=== PATIENT | male | born 1955 | race American Indian/Alaskan Native ===

== ENCOUNTER 2019-08-29 17:35 | Inpatient (IN) | payer OTHER ==
[~2019-08-29] VITALS: Ht 177.8 cm; Wt 79.5 kg
[2019-08-29 18:42] LABS: Source, Urine Clean Catch
[2019-08-29 18:50] LABS: Blood, Urine 2+ (Neg); Glucose Qualitative, Urine Neg (Neg); Ketones, Urine 1+ (Neg); Leukocyte Esterase, Urine 1+ (Neg); Nitrite, Urine Pos (Neg); Protein, Urine 3+ (Neg); Urobilinogen, Urine 4+ (Normal)
[2019-08-29 19:02] LABS: Appearance, Urine Hazy (Clear); Bilirubin, Urine 2+ (Neg); Color, Urine Amber (P-Yellow)
[2019-08-29 19:04] LABS: Amorphous Light (0-Heavy); Bacteria Many /hpf; Hyaline Casts 0-2 /lpf (0-2); Mucus Light (0-Heavy); Squamous Epithelial Cells Few /hpf (Few)
[2019-08-29 23:15] LABS: Hematocrit 37.1 % (37.0-53.0); Hemoglobin 12.5 g/dL (13.5-17.5); Mean Corpuscular HGB Conc 33.7 g/dL (31.5-36.5); Mean Corpuscular Volume 89 fL (80-100); Mean Platelet Volume 10.4 fL (9.1-12.4); Platelet Count 120 K/mm3 (150-400); RDW Coefficient Variation 12.7 % (11.7-14.2); RDW Standard Deviation 42.1 fL (35.1-46.3); Red Blood Cell Count 4.16 M/mm3 (4.30-5.90); White Blood Cell Count 6.58 K/mm3 (4.00-11.30)
[2019-08-29 23:31] LABS: Alanine Aminotransfer (ALT/SGP 112 U/L (12-78); Albumin, Blood 2.3 g/dL (3.4-5.0); Albumin/Globulin Ratio 0.8 (0.8-1.8); Alk Phos 201 U/L (50-136); Anion Gap 7 mmol/L (6-16); Aspartate Aminotrans (AST/SGOT 85 U/L (12-37); Blood Urea Nitrogen 24 mg/dL (8-24); Bun/Creatinine Ratio 11.2 (12.0-20.0); CO2, Blood 23 mmol/L (21-32); Calcium, Blood 7.4 mg/dL (8.5-10.1); Chloride, Blood 110 mmol/L (98-108); Creatinine, Blood 2.15 mg/dL (0.60-1.20); Glomerular Filtration Rate 33 (60-); Glucose, Blood 103 mg/dL (70-99); Potassium, Blood 3.6 mmol/L (3.5-5.5); Salicylate <1.7 mg/dL (2.8-20.0); Sodium, Blood 140 mmol/L (136-145); Total Protein, Blood 5.3 g/dL (6.4-8.2)
[2019-08-29 23:34] LABS: International Normalized Ratio 1.03; Prothrombin Time Results 10.9 Sec (9.7-11.5)
[2019-08-29 23:38] LABS: BAND PERCENT MAN 36 % (0-8); BASOPHILS ABSOLUTE MAN 0.13 K/mm3 (0.00-0.23); BASOPHILS PERCENT MAN 2 % (0-2); EOSINOPHILS PERCENT MAN 0 % (0-6); LYMPHOCYTES ABSOLUTE MAN 0.13 K/mm3 (0.84-5.20); LYMPHOCYTES PERCENT MAN 2 % (21-46); MONOCYTES ABSOLUTE MAN 0.19 K/mm3 (0.16-1.47); MONOCYTES PERCENT MAN 3 % (4-13); NEUTROPHILS ABSOLUTE MAN 6.11 K/mm3 (1.96-9.15); SEG NEUTROPHILS PERCENT MAN 57 % (41-73); TOTAL CELLS COUNTED 100
--- NOTE | 2019-08-30 02:27 | NUR ---
PT. STILL IN 03/30 GENERALIZED BACK/HEAD PAIN, DIFFICULTY SLEEPING, RECEIVED ORDER FROM DR. RANDHAWA X1 DOSE OF 25 MCG FENTANYL IVPUSH.
[2019-08-30 05:00] LABS: Hematocrit 36.4 % (37.0-53.0); Hemoglobin 12.3 g/dL (13.5-17.5); Mean Corpuscular HGB 30.1 pg (26.0-34.0); Mean Corpuscular HGB Conc 33.8 g/dL (31.5-36.5); Mean Corpuscular Volume 89 fL (80-100); Mean Platelet Volume 10.4 fL (9.1-12.4); Platelet Count 120 K/mm3 (150-400); RDW Coefficient Variation 12.9 % (11.7-14.2); RDW Standard Deviation 42.6 fL (35.1-46.3); Red Blood Cell Count 4.08 M/mm3 (4.30-5.90); White Blood Cell Count 6.92 K/mm3 (4.00-11.30)
[2019-08-30 05:30] LABS: Albumin, Blood 2.2 g/dL (3.4-5.0); Albumin/Globulin Ratio 0.7 (0.8-1.8); Bilirubin, Total 2.8 mg/dL (0.1-1.0); Bun/Creatinine Ratio 11.7 (12.0-20.0); Calcium, Blood 7.2 mg/dL (8.5-10.1); Creatinine, Blood 2.39 mg/dL (0.60-1.20); Globulin, Blood 3.1 g/dL (2.2-4.0); Potassium, Blood 3.9 mmol/L (3.5-5.5); Total Protein, Blood 5.3 g/dL (6.4-8.2)
--- NOTE | 2019-08-30 08:08 | NUR ---
PT NAUSEOUS THIS MORNING WHEN BREAKFAST ARRIVED AND VOMITTED ABOUT 50ML. ZOFRAN GIVEN, COOL CLOTH TO FOREHEAD AND NAUSEA SLOWLY IMPROVED. DR. SHERWOOD GAVE OK FOR REGULAR DIET, BUT ENCOURAGED PT TO START WITH TRYING TO KEEP SOME LIQUIDS DOWN AND PT VERBALIZES UNDERSTANDING. PT'S SPO2 WAS 98% ON 2L/NC. TITRATED OFF AND PT 92-94% RA. ALVARO AT BEDSIDE. CONTINUING TO MONITOR.
--- NOTE | 2019-08-30 11:58 | NUR ---
REASSESSMENT: PT HAS BEEN RESTING IN BED FOR MOST OF THE MORNING. HE HAS BEEN UP TO THE BATHROOM, C/O OF LIGHTHEADEDNESS IN AND OUT OF BED. ONGOING HEADACHE, REFUSED TYLENOL. WENT FOR CT WITH RN, TOLERATED WELL. NAUSEA IS IMPROVED, BUT STILL PRESENT. BP REMAINS STABLE OFF OF LEVOPHED.
--- NOTE | 2019-08-30 14:21 | NUR ---
Initial Visit: Palliative Care Consult for AD/POLST. Pt is resting in bed and is A&OX4. Family and friends at bedside. Engaged in discussion regarding AD/POLST. Pt confirms interest in Advance Directive. Educated Pt on AD, life sustaining measures including risk factors, and each section to complete. Read each scenario to consider with options to choose from. Pt reports that he would like to consider each scenario a little further before completing. Educated Pt on the importance of having a health care wire rope sales representative. Friend of family who is also present during visit reports being a notary and can assist once Pt is at home. Pt reports no other concerns at this time. Palliative Care will remain available.
--- NOTE | 2019-08-30 16:37 | NUR ---
PT HAS HAD AN ONGOING HEADACHE. TYLENOL GIVEN, WITH NO RELIEF. PT SAYS HIS BACK AND NECK ARE STARTING TO HURT WELL. DR. SHERWOOD NOTIFIED AND RECEIVED ORDER FOR FENTANYL, SEE ORDERS.
--- NOTE | 2019-08-30 17:25 | NUR ---
SHIFT SUMMARY: PT SPENT THE DAY RESTING IN BED. HE GOT UP TWICE TO THE BATHROOM AND GETS UP TO THE EOB TO VOID. HE HAS HAD AN ONGOING H/A THAT INITIALLY IMPROVED WITH THE NICOTINE PATCH, BUT GOT WORSE THIS EVENING. TYLENOL GIVEN WITH NO RELIEF, THEN FENTANYL GIVEN WITH A LITTLE RELIEF. PT'S FAMILY STATES PT DRINKS A LOT OF COFFEE USUALLY WELL SO HEADACHES MAY BE CAFFEINE RELATED WELL. PT SPIKED A FEVER THIS EVENING, BUT IT RESOLVED QUICKLY WITH THE TYLENOL THAT WAS GIVEN. PT'S NAUSEA IS STILL PRESENT, BUT MANAGEABLE. HE HAS BEEN ABLE TO KEEP SMALL SIPS OF FLUIDS DOWN. IV FLUIDS STILL GOING AND I/O ARE WITHIN 100ML OF EACH OTHER. LUNGS ARE CLEAR. HAD TO PLACE ON 2L/NC AFTER GIVING FENTANYL. SR, BP STABLE OFF OF THE LEVOPHED STILL. FAMILY HAS BEEN AT THE BEDSIDE THROUGHOUT THE DAY AND ALL HAVE BEEN UPDATED.
--- NOTE | 2019-08-30 20:39 | NUR ---
PATIENT RESTING IN BED VISITING WITH FAMILY WITH ROOM DARK. PATIENT CONTINUES TO C/O SANCHEZ AND SLIGHT NAUSEA. PATIENT ALSO C/O LOW BACK PAIN. MEDICATED WITH FENTANYL DURING THE DAY WITH SLIGHT RELIEF. PATIENT ABLE TO SIT ON SIDE OF BED WITH SLIGHT ASSIST TO USE URINAL PASSING DARK JOSHUA URINE. COOL CLOTH PLACED TO FOREHEAD FOR SANCHEZ WHEN BACK TO BED. LEVOPHED REMAINS OFF AT THIS TIME.
--- NOTE | 2019-08-30 22:28 | NUR ---
PATIENT VERBALIZED THAT HE HAS BEEN HAVING HALLUCINATIONS STARTING YESTERDAY. PATIENT VERBALIZED THAT WHEN HE CLOSES HIS EYES HE HAS BEEN SEEING DESCRIBED WATCHING A WESTERN MOVIE, ALSO WHEN HIS EYES ARE CLOSED HE SEES A BAG FULL OF TOYS ON THE COUNTER THAT ARE NOT THERE WHEN HE OPENS HIS EYES. HE REALIZES THAT THESE ARE NOT REAL AND SEEMS UNDISTURBED BY THEM.
[2019-08-31 03:47] LABS: BASOPHILS ABSOLUTE AUTO 0.02 K/mm3 (0.00-0.23); BASOPHILS PERCENT AUTO 0 % (0-2); EOSINOPHILS ABSOLUTE AUTO 0.04 K/mm3 (0.00-0.68); EOSINOPHILS PERCENT AUTO 1 % (0-6); Hematocrit 35.9 % (37.0-53.0); Hemoglobin 12.3 g/dL (13.5-17.5); IMMATURE GRAN ABSOLUTE AUTO 0.01 K/mm3 (0.00-0.10); IMMATURE GRAN PERCENT AUTO 0 % (0-1); LYMPHOCYTES PERCENT AUTO 7 % (21-46); MONOCYTES PERCENT AUTO 7 % (4-13); Mean Corpuscular HGB 30.1 pg (26.0-34.0); Mean Corpuscular HGB Conc 34.3 g/dL (31.5-36.5); Mean Corpuscular Volume 88 fL (80-100); Mean Platelet Volume 10.5 fL (9.1-12.4); NEUTROPHILS PERCENT AUTO 84 % (41-73); Platelet Count 129 K/mm3 (150-400); RDW Coefficient Variation 13.2 % (11.7-14.2); RDW Standard Deviation 42.8 fL (35.1-46.3); Red Blood Cell Count 4.08 M/mm3 (4.30-5.90); White Blood Cell Count 5.57 K/mm3 (4.00-11.30)
--- NOTE | 2019-08-31 03:59 | NUR ---
AT 0230 PATIENT AWAKE AND VERBALIZED THAT HIS SANCHEZ IS RETURNING AND HE WAS FEELING LIKE HIS TEMP MY BE GOING UP. TYLENOL AND ZOFRAN GIVEN, AND COOL CLOTH PLACED TO FOREHEAD. TEMP NOW UP TO 99.9 OXYGEN PLACED AT 2L/NC DUE TO BIOX 88-89% ON RA BIOX NOW 96% ON 2L/NC
[2019-08-31 04:04] LABS: Albumin/Globulin Ratio 0.7 (0.8-1.8); Bilirubin, Total 1.8 mg/dL (0.1-1.0); Bun/Creatinine Ratio 15.3 (12.0-20.0); Calcium, Blood 7.9 mg/dL (8.5-10.1); Creatinine, Blood 1.77 mg/dL (0.60-1.20); Magnesium, Blood 1.8 mg/dL (1.6-2.4); Phosphorus, Blood 2.4 mg/dL (2.5-4.9); Potassium, Blood 3.5 mmol/L (3.5-5.5)
--- NOTE | 2019-08-31 06:31 | NUR ---
PATIENT AWAKE MOST OF NIGHT. C/O SANCHEZ AND NAUSEA, PATIENT VERBALIZED HAVING HALLUCINATIONS WHEN HIS EYES ARE CLOSED MORE SO WHEN HIS SANCHEZ IS MORE SEVERE. MEDICATED WITH TYLENOL AND ZOFRAN. LEVOPHED REMAINS OFF. PATIENT ABLE TO SIT AT SIDE OF BED TO USE URINAL WITH MIN ASSIST DUE TO LINES AND CORDS. PATIENTS DAUGHTER AT BEDSIDE PROVIDING GOOD SUPPORT.
--- NOTE | 2019-08-31 09:37 | NUR ---
ASSUMED CARE NOTE: ASSUMED CARE OF PT @ 0700, RECEVIED REPORT FROM IKE RODAS. UPON ENTERING PT WAS ON 2L OF O2 VIA NC, WITH SPO2 ABOVE 90%. PT IS ALERT AND ORIENTEDX4. DAUGHTER @ BEDSIDE. PT C/O HEADACHE, AND VERTIGO, AND WAS MEDICATED PER EMAR. ORTHOSTATIC BP'S COMPLETED. PT USING URINAL AT BEDSIDE. PT'S STATUS CHANGED TO MEDICAL STATUS PER . WILL REMOVE CENTRAL LINE BEFORE TRANSFER. WILL CONTINUE TO MONITOR PT UNTIL REPORT IS GIVEN TO MED FLOOR NURSE.
--- NOTE | 2019-08-31 11:19 | NUR ---
TRANSFER NOTE: GAVE REPORT TO CESARIO RAMIRES. TRANSFERED PT TO ROOM IN BED ON RA. PT TRANSFERED FROM BED WITH 1/PERSON ASSISTANCE.
--- NOTE | 2019-08-31 11:41 | NUR ---
1106 PT TRANSFERED TO MEDICAL FLOOR FROM ICU. PT SELF TRANSFERED TO BED WITHOUT ISSUE. MRI FORM FILLED OUT WITH PT AND FAXED TO MRI. DAUGHTER AT BEDSIDE.
--- NOTE | 2019-08-31 13:35 | NUR ---
PT TO IMAGING FOR MRI [facility]IA [facility].
--- NOTE | 2019-08-31 16:17 | NUR ---
Spiritual Care inital note: Per admit trigger, I met with Mr. Gonzalez to offer information about Advanvced Directive. He informed me he already has one completed. No needs or concerns presented. He feels like he is going to be "ok." I will remain available.
--- NOTE | 2019-08-31 18:28 | NUR ---
SHIFT SUMMARY. PT MILDLY FEBRILE THIS AFTERNOON, PRN APAP GIVEN WITH GOOD EFFECT. PT REPORTED MILD NAUSEA WITHOUT VOMITTING, MANAGED WELL WITH PRN ZOFRAN. MRI COMPLETED TODAY, DR. SHERWOOD IN WITH PT AND DAUGHTER TO DISCUSS RESULTS. PT TO START NASAL SPRAY THIS EVENING FOR SINUS INFLAMATION PER DR. SHERWOOD. DAUGHTER AT BEDSIDE DURING MOST OF THE SHIFT SINCE TRANSFER, RECLINER PLACED IN ROOM PER DAUGHTER REQUEST TO STAY THE NIGHT WITH PT.
[2019-09-01 05:10] LABS: BASOPHILS ABSOLUTE AUTO 0.02 K/mm3 (0.00-0.23); BASOPHILS PERCENT AUTO 0 % (0-2); EOSINOPHILS ABSOLUTE AUTO 0.05 K/mm3 (0.00-0.68); EOSINOPHILS PERCENT AUTO 1 % (0-6); Hemoglobin 12.1 g/dL (13.5-17.5); IMMATURE GRAN ABSOLUTE AUTO 0.01 K/mm3 (0.00-0.10); IMMATURE GRAN PERCENT AUTO 0 % (0-1); LYMPHOCYTES ABSOLUTE AUTO 0.65 K/mm3 (0.84-5.20); LYMPHOCYTES PERCENT AUTO 15 % (21-46); MONOCYTES ABSOLUTE AUTO 0.42 K/mm3 (0.16-1.47); MONOCYTES PERCENT AUTO 9 % (4-13); Mean Corpuscular HGB 29.2 pg (26.0-34.0); Mean Corpuscular HGB Conc 33.6 g/dL (31.5-36.5); Mean Corpuscular Volume 87 fL (80-100); Mean Platelet Volume 10.8 fL (9.1-12.4); NEUTROPHILS PERCENT AUTO 74 % (41-73); Platelet Count 148 K/mm3 (150-400); RDW Coefficient Variation 13.4 % (11.7-14.2); RDW Standard Deviation 42.2 fL (35.1-46.3); Red Blood Cell Count 4.15 M/mm3 (4.30-5.90); White Blood Cell Count 4.45 K/mm3 (4.00-11.30)
--- NOTE | 2019-09-01 05:33 | NUR ---
SHIFT SUMMARY PT RECIEVED DEEP SEA NASAL SPRAY FOR THE FIRST TIME TONIGHT AND REPORTS HEADACHE AND VERTIGO HAS SIGNICANTLY IMPROVED SINCE. PT WITH LOW GRADE FEVER OF 100.0, BROUGHT DOWN TO 98.8 WITH COOL WASH CLOTH APPLICATION AND PO TYLENOL. TELE IN PLACE, NSR @ 72 BPM. WEENED OFF O2, BUT PT REAPPLIED T/O NIGHT FOR COMFORT, HOWEVER O2 SATS DID NOT DROP BELOW 95%. NO OTHER CHANGES TO REPORT. DAUGTHER AT BEDSIDE T/O NIGHT. WILL CONT TO MONITOR AND PROVID CARE UNTL PRESUMED BY ONCOMING RN.
[2019-09-01 05:37] LABS: Calcium, Blood 7.9 mg/dL (8.5-10.1); Creatinine, Blood 1.55 mg/dL (0.60-1.20); Potassium, Blood 3.4 mmol/L (3.5-5.5)
[2019-09-01] MEDS ORDERED: ACET325 PO (11:01)
[2019-09-01] MEDS ORDERED: Colace100 MG PO (11:03)
[2019-09-01] MEDS ORDERED: MOTION RELIEF25 MG PO (11:04)
[2019-09-01] MEDS ORDERED: Cefdinir300 MG PO (11:05)
[2019-09-01] MEDS ORDERED: DEEP SEA44 ML (11:07)
--- NOTE | 2019-09-01 12:19 | NUR ---
1155 PT DISCHARGED HOME VIA PERSONAL VEHICLE ACCOMPANIED AND DRIVEN BY DAUGHTER. PT ESCORTED TO ENTRANCE VIA W/C BY FIBERGLASS FINISHER. IVS REMOVED. D/C PAPERWORK REVIEWED WITH PT AND COPY PROVIDED, PT VERBALIZED UNDERSTANDING. IJ DRESSING REMOVED, NO HEMATOMA OR BLEEDING, SITE TO R NECK MOSTLY PINPOINT SCABBED. PO KCL GIVEN PRIOR TO D/C. NO NEW CHANGES OR CONCERNS.
== END 2019-09-01 11:55 | disposition home or self-care (01) | DRG 871 ==
LOC: ER 17:35 → ICUW 22:04 → MEDS 22:04 → ICUE 22:04 → MEDS 08-31 11:06
PROVIDERS: Emergency Medicine; Internal Medicine; Internal Medicine Critical Care Medicine; ADMIT Internal Medicine
PROC: 05HM33Z Insertion of Infusion Device into Right Internal Jugular Vein, Percutaneous Approach (ICD-10-PCS; principal; 2019-08-29)
PROC: B543ZZA Ultrasonography of Right Jugular Veins, Guidance (ICD-10-PCS; 2019-08-29)
DX: A41.9 Sepsis, unspecified organism (principal); R65.21 Severe sepsis with septic shock; N17.0 Acute kidney failure with tubular necrosis; K72.00 Acute and subacute hepatic failure without coma; N10 Acute pyelonephritis; J98.11 Atelectasis; E87.6 Hypokalemia; J32.9 Chronic sinusitis, unspecified; E83.39 Other disorders of phosphorus metabolism; I95.9 Hypotension, unspecified; D69.6 Thrombocytopenia, unspecified; Z87.891 Personal history of nicotine dependence
CPT/HCPCS: 36415; 36556; 70450; 70551; 74176; 76705; 80048; 80053; 81001; 83605; 83690; 83735; 84100; 85025; 85027; 85610; 85651; 86140; 87040; 87086; 93005; 93010; 96361; 96374; 99285-25; A9270; C1751; G0480; J0696; J2405; J3010; J7030; J7050; J7060; J7120

== ENCOUNTER → 2019-08-29 | Outpatient (CLI) | payer OTHER ==
[~2019-08-29] MED LIST: ACET325 PO; Cefdinir300 MG PO; Colace100 MG PO; DEEP SEA44 ML; MOTION RELIEF25 MG PO
[2019-08-29 15:31] LABS: Hematocrit 45.7 % (37.0-53.0); Hemoglobin 15.3 g/dL (13.5-17.5); Mean Corpuscular HGB 29.9 pg (26.0-34.0); Mean Corpuscular HGB Conc 33.5 g/dL (31.5-36.5); Mean Corpuscular Volume 89 fL (80-100); Mean Platelet Volume 10.3 fL (9.1-12.4); Platelet Count 147 K/mm3 (150-400); RDW Coefficient Variation 12.6 % (11.7-14.2); RDW Standard Deviation 41.9 fL (35.1-46.3); Red Blood Cell Count 5.11 M/mm3 (4.30-5.90); White Blood Cell Count 4.95 K/mm3 (4.00-11.30)
[2019-08-29 15:53] LABS: Albumin, Blood 3.1 g/dL (3.4-5.0); Albumin/Globulin Ratio 0.8 (0.8-1.8); Bilirubin, Total 3.1 mg/dL (0.1-1.0); Bun/Creatinine Ratio 11.9 (12.0-20.0); Calcium, Blood 8.3 mg/dL (8.5-10.1); Creatinine, Blood 1.59 mg/dL (0.60-1.20); Globulin, Blood 3.8 g/dL (2.2-4.0); Potassium, Blood 3.8 mmol/L (3.5-5.5); Total Protein, Blood 6.9 g/dL (6.4-8.2)
[2019-08-29 16:08] LABS: BAND PERCENT MAN 29 % (0-8); BASOPHILS PERCENT MAN 0 % (0-2); EOSINOPHILS PERCENT MAN 0 % (0-6); LYMPHOCYTES ABSOLUTE MAN 0.14 K/mm3 (0.84-5.20); LYMPHOCYTES PERCENT MAN 3 % (21-46); MONOCYTES ABSOLUTE MAN 0.09 K/mm3 (0.16-1.47); MONOCYTES PERCENT MAN 2 % (4-13); SEG NEUTROPHILS PERCENT MAN 66 % (41-73); TOTAL CELLS COUNTED 100
== END ==
LOC: LAB SHORT 15:00 → LAB 15:00
PROVIDERS: Nurse Practitioner
DX: R10.84 Generalized abdominal pain (principal); R11.10 Vomiting, unspecified
CPT/HCPCS: 80053; 85025